=== PATIENT | male | born 1995 | race Caucasian/White ===

== ENCOUNTER 2020-10-23 08:30 | Outpatient (RCR) | payer BC | END 2021-01-21 | disposition home or self-care (01) | LOC: CARD 08:30 | PROVIDERS: ATTEND Internal Medicine Cardiovascular Disease | DX: R00.2 Palpitations (principal); I07.1 Rheumatic tricuspid insufficiency | CPT/HCPCS: 93306 ==

== ENCOUNTER 2021-05-27 11:52 | Outpatient (CLI) | payer BC ==
[~2021-05-27] VITALS: Ht 193 cm; Wt 95.5 kg
[2021-05-28] MEDS ORDERED: ACHD5005 PO (12:36)
== END 2021-05-27 12:37 | disposition home or self-care (01) ==
LOC: PREOP 11:52
PROVIDERS: ATTEND Surgery
DX: Z01.818 Encounter for other preprocedural examination (principal)

== ENCOUNTER 2021-05-28 09:27 | Day surgery (SDC) | payer BC ==
[2021-05-28] VITALS (12 sets, daily range): BP systolic 113–134; BP diastolic 53–84
[~2021-05-28] VITALS: Ht 193 cm; Wt 95.5 kg
[2021-05-28] MEDS ORDERED: LACTATED RINGERS 1,000 ML IV PRN (10:00)
[2021-05-28] MEDS ORDERED: ceFAZolin 2 GM IV Premixed 50 ML IV ONE (10:15)
[2021-05-28] MEDS ORDERED: IOHEXOL 300 MG/ML 30 ML (OMNIPAQUE 300) VIAL INJ ONE (11:00)
[2021-05-28] MEDS ORDERED: LIDOCAINE/EPI 2% 1:100,00 (XYLOCAINE) 20 ML VIAL ONE (11:03)
[2021-05-28] MEDS ORDERED: LIDOCAINE PF 2% 5 ML (XYLOCAINE) VIAL ONE (11:37)
[2021-05-28] MEDS ORDERED: fentaNYL INJ 100 MCG/2 ML AMP ONE (11:37)
[2021-05-28] MEDS ORDERED: proPOfol 200 MG/20 ML (DIPRIVAN) VIAL IV ONE (11:37)
[2021-05-28] MEDS ORDERED: ONDANSETRON 4 MG/2 ML (SDV) Z0FRAN ONE (11:37)
[2021-05-28] MEDS ORDERED: MIDAZOLAM 2 MG/2 ML (VERSED) VIAL ONE (11:37)
[2021-05-28] MEDS ORDERED: ROCURONIUM 10 MG/ML 5 ML SYRINGE IV ONE (11:37)
[2021-05-28] MEDS ORDERED: GLYCOPYRROLATE 0.2 MG/ML (ROBINUL) 2 ML VIAL ONE (11:37)
[2021-05-28] MEDS ORDERED: NEOSTIGMINE 3 MG/3 ML VIAL ONE (11:37)
[2021-05-28] MEDS ORDERED: KETOROLAC 30 MG/ML VIAL ONE (12:24)
[2021-05-28] MEDS ORDERED: HYDROmorphone 2 MG/ML VIAL (DILAUDID) ONE ×2 (12:28→12:55)
--- NOTE | 2021-05-28 12:35 | Progress Note-Post Operative ---
Post-Operative Progess Note Surgeon (s)/Building Maintenance Repairer (s) Surgeon EDVIN ARNOLD DO Building Maintenance Repairer: Karen Pre-Operative Diagnosis Acute rubin/rubin Post-Operative Diagnosis same Procedure & Operative Findings Date of Procedure 05/28/21 Procedure Performed/Findings PROCEDURE: Laparoscopic cholecystectomy with intraoperative cholangiogram. COMPLICATIONS: None. PROCEDURE: The patient was taken to the operating suite and was prepped and draped in sterile fashion. A surgical pause was performed. Just superior to the umbilicus, a 12 mm incision was made. Dissection was taken down to the fascia, which was then scored and grasped with a Franklin and the abdomen was then entered. A 0 Vicryl suture was placed in a [id number] fashion and a Danielson trocar was placed and secured. Pneumoperitoneum was achieved. A 5mm tro[address] in the subxyphoid an d 2 in the right upper quadrant. Gallbladder was noted to be inflamed, erythematous, edematous and thickened. There were also some adhesions on the gallbladder indicating a cholecystitis attack. The gallbladder was then grasped at the fundus and taken in the superior direction. Then able to grasp down at Earl's pouch and pull in the infero-lateral direction. The cystic duct and cystic artery were then dissected out. Clip was placed on the distal portion of the cystic duct which was then partially transected. An arrow catheter was inserted into the duct. The cholangiogram was then performed. No filing defects and contrast made its way into the duodenum. Catheter removed. Clips were placed on proximal portion of the cystic duct and then the duct was then transected. Clips were placed along the proximal and distal portion of the cystic artery which was then transected. Hook cautery was used to dissect the gallbladder from the gallbladder fossa achieving hemostasis. The gall- bladder was placed in an Endobag and removed through the 12 mm trocar site. The abdomen was then reinspected. Copious amounts of irrigation were used to irrigate the abdomen and there were no signs of active bleeding. Hemostasis had been achieved. The 12 mm fascial defect was then closed with 0 Vicryl suture that had been placed in a figure- of-eight fashion. The abdomen was then desufflated, the trocars were removed. The abdomen was then washed and dried. The skin was then closed using 4-0 Monocryl in a subcuticular fashion. The abdomen was washed and dried and Skin Affix was place over incisions. Patient tolerated the procedure well without any complications and was taken to the recovery room in stable condition. Dr. Jones assisted on this case making incisions, closing incisions, identifying anatomy and holding anatomy out of the way. Anesthesia Type GET Estimated Blood Loss Estimated blood loss (mL): scant Specimens/Packing Specimens Removed GB and contents EDVIN ARNOLD DO May 28, 2021 12:35
[2021-05-28] MEDS ORDERED: ACHD5005 PO (12:36)
--- NOTE | 2021-05-28 12:37 | Discharge Inst-Surgical ---
Discharge Inst-Surgical Depart Medication/Instructions New, Converted or Re-Newed RX: Transmitted to Pharmacy Patient Instructions Follow up Appt: Make appointment for 1 week. [phone] Instructions: No lifting greater than 20 pounds. No strenuous activity. May shower in 24 hours, no tub bath or soaking. Use incentive spirometer at home as directed. No Smoking Skin/Wound Care: May remove bandages in am. You need to leave the Dermabond on incision it will fall off on it's own. Symptoms to Report: Appetite Changes, Extremity Discoloration, Numbness/Tingling, Swelling Increased, Bleeding Excessive, Eyesight Changes, Pain Increased, Urine Color Change, Constipation(Persistent), Fever over 101 degree F, Pain/Pressure in chest, Urinating Difficulty, Cough Up/Vomit Blood, Heart Beat Irreg/Pounding, Pain/Pressure in jaw, Cramps in feet or legs, Lightheadedness, Pain/Pressure in shoulder, Diarrhea(Persistent), Memory Changes Suddenly, Questions/Concerns, Weight gain consecutive days, Dizziness/Fainting, Nausea/Vomiting, Shortness of Breath, Weight gain over 2 pounds If questions or concerns contact your physician Or seek help at emergency department. Activity Activity as Tolerated: Yes Activity Instructions: Avoid Stress to Incision Driving Instructions: No Driving/Refer to Diet Discharge Diet: Avoid Fatty Foods, Low Fat/Low Cholesterol Diet After 24 Hours: Clear Liquid if Nauseous If Any Problems/Questions/Issu: Contact Your Physician, Go to Emergency Room Skin/Wound Care Infection Signs and Symptoms: Increased Redness, Foul Odor of Wound, Increased Drainage, Skin Itchy or Has a Rash, Increased Swelling, Temperature Above 101 F Wound Care Comment: heating pad to shoulder or neck tonight for pain Bathing Instructions: Shower Stitches/Edmund/Dermabond Dis: Dermabond Ice Pack: Ice On and Off Site EDVIN ARNOLD DO May 28, 2021 12:37
[2021-05-28] MEDS ORDERED: LACTATED RINGERS 1,000 ML IV ONE (12:40)
[2021-05-28] MEDS ORDERED: HYDROmorphone 2 MG/ML VIAL (DILAUDID) IV ONE (13:00)
[2021-05-28] MEDS ORDERED: ONDANSETRON 4 MG/2 ML (SDV) Z0FRAN IVP PRN (13:00)
--- NOTE | 2021-05-28 13:38 | Anesthesia-General Post-Op ---
General Patient Condition Mental Status/LOC: Same as Preop Cardiovascular: Satisfactory Nausea/Vomiting: Absent Respiratory: Satisfactory Pain: Controlled Complications: Absent Post Op Complications Complications None Follow Up Care/Instructions Patient Instructions None needed. Anesthesia/Patient Condition Patient Condition Patient is doing well, no complaints, stable vital signs, no apparent adverse anesthesia problems. No complications reported per nursing. D/C home per [facility] Criteria: Yes JASKARAN MADRID CRNA May 28, 2021 13:38
[2021-05-28] MEDS ORDERED: HYDROcodone/APAP 5 MG/325 MG (LORTAB) TAB PO ONE (14:00)
--- NOTE | 2021-05-28 16:12 | Diagnostic Imaging Report ---
INDICATION: Fluoroscopy during intraoperative cholangiogram. Fluoroscopy was provided in the OR during intraoperative cholangiogram. 11 seconds of fluoroscopic time was utilized. 50 images were obtained demonstrating contrast being injected via the cystic duct remnant. Intrahepatic and extrahepatic bile ducts are normal in caliber. There is free flow of contrast into the duodenum. No filling defects are seen to suggest retained stone. There is some contrast refluxing into the pancreatic duct. IMPRESSION: Fluoroscopy during intraoperative cholangiogram. Dictated by: Dictated on workstation # [id number]
== END 2021-05-28 15:30 | disposition home or self-care (01) ==
LOC: SDC 09:27
PROVIDERS: ATTEND Surgery
DX: K80.12 Calculus of gallbladder with acute and chronic cholecystitis without obstruction (principal); I47.1 Supraventricular tachycardia; F17.290 Nicotine dependence, other tobacco product, uncomplicated
CPT/HCPCS: 76000; 87081